=== PATIENT | female | born 1975 ===

== ENCOUNTER 2020-09-04 13:30 | Emergency (ER) | payer SELFPAY ==
[2020-09-04 14:05] VITALS: BP 144/91
[2020-09-04] MEDS ORDERED: TETRACAINE 0.5% OPHTH SOLN 4ML OU PRN (14:05)
[2020-09-04] MEDS ORDERED: FLUORESCEIN 1 MG STRIP OP ONE (14:05)
--- NOTE | 2020-09-04 14:08 | Event Note ---
ED Screening Note Date of service: 09/04/20 Time: 14:06 ED Screening Note: Patient complains of right eye pain, foreign body sensation, and photophobia Patient is a contact lens wear Denies any direct trauma to her eye This initial assessment/diagnostic orders/clinical plan/treatment(s) is/are subject to change based on patients health status, clinical progression and re- assessment by fellow clinical providers in the ED. Further treatment and workup at subsequent clinical providers discretion. Patient/guardian urged not to elope from the ED as their condition may be serious if not clinically assessed and managed. Initial orders include: Park lamp exam
== END 2020-09-04 19:50 | disposition left against medical advice (07) ==
LOC: ED 13:30
DX: H57.11 Ocular pain, right eye (principal); Z53.21 Procedure and treatment not carried out due to patient leaving prior to being seen by health care provider